=== PATIENT | female | born 1975 | race Two or more races ===

== ENCOUNTER 2017-12-07 08:23 | Outpatient (CLI) | payer OTHER ==
[~2017-12-07 08:23] MED LIST: ABILIFY5 MG; ALLEGRA ALLERG180 MG PO; GILTUSS TR TAB1 EACH PO; KETO10TA2 PO; WELLBUTRIN XL300 MG
== END 2017-12-07 08:30 | disposition home or self-care (01) ==
LOC: RAD 501 08:23
DX: M51.36 Other intervertebral disc degeneration, lumbar region (principal); M50.30 Other cervical disc degeneration, unspecified cervical region; Z98.1 Arthrodesis status